=== PATIENT | female | born 1990 | race Caucasian/White ===

== ENCOUNTER 2020-09-17 09:03 | Emergency (ER) | payer BC ==
[~2020-09-17] VITALS: Ht 152.4 cm; Wt 63.0 kg
--- NOTE | 2020-09-17 09:19 | NUR ---
PT BROUGHT BACK FROM TRIAGE WITH CHIEF COMPLAINT OF BILAT FLANK PAIN AND N/V STARTING AT MIDNIGHT.
[2020-09-17] MEDS ORDERED: ONDANSETRON 2MG/ML, 2ML IVPush ONE (10:00)
[2020-09-17] MEDS ORDERED: KETOROLAC 30 MG/1 ML IVPush ONE (10:00)
[2020-09-17] MEDS ORDERED: SODIUM CHLORIDE FLUSH 10ML SYR IVF ONE (10:00)
[2020-09-17] MEDS ORDERED: SODIUM CHLORIDE 0.9% 1,000ML IV ONE (10:00)
[2020-09-17] MEDS ORDERED: HYDROmorphone 1 MG/ML, 1ML INJ IV ONE ×2 (10:00→11:30)
[2020-09-17] MEDS ORDERED: ONDANSETRON 2MG/ML, 2ML ONE (10:03)
[2020-09-17] MEDS ORDERED: KETOROLAC 30 MG/1 ML ONE (10:03)
--- NOTE | 2020-09-17 10:09 | NUR ---
PT TO IMAGING
[2020-09-17 10:28] LABS: MICROSCOPIC NOT IND
[2020-09-17] MEDS ORDERED: HYDROmorphone 1 MG/ML, 1ML INJ ONE ×2 (10:30→11:27)
[2020-09-17 10:49] LABS: BASOPHILS % (AUTO) 0 % (0-1); EOSINOPHILS % (AUTO) 0 % (1-7); LYMPHOCYTES % (AUTO) 7 % (22-44); MEAN CORPUSCULAR HEMOGLOBIN 28.6 pg (27.0-34.8); MEAN CORPUSCULAR HGB CONC 33.3 g/dL (32.4-35.8); MEAN PLATELET VOLUME 8.7 fL (7.4-10.4); MONOCYTES % (AUTO) 4 % (2-9); NEUTROPHILS % (AUTO) 89 % (42-75); PLATELET COUNT 284 x10^3/uL (130-400); RED BLOOD COUNT 4.82 x10^6/uL (3.82-5.3); RED CELL DISTRIBUTION WIDTH 14.9 % (9.6-15.2)
[2020-09-17 10:56] LABS: ALANINE AMINOTRANSFERASE 57 U/L (12-78); ALBUMIN 4.2 g/dL (3.4-5.0); ANION GAP 5 mmol/L (5-15); CALCIUM 9.2 mg/dL (8.5-10.1); CHLORIDE 109 mmol/L (98-107); CREATININE 0.87 mg/dL (0.55-1.02)
[2020-09-17 10:58] LABS: ALKALINE PHOSPHATASE 115 U/L (45-117); BILIRUBIN,TOTAL 0.4 mg/dL (0.2-1.0)
--- NOTE | 2020-09-17 11:15 | NUR ---
NAYELI BUENO AT BEDSIDE FOR EVAL
[2020-09-17 11:23] VITALS: BP 138/83
--- NOTE | 2020-09-17 12:12 | NUR ---
DC INSTRUCTIONS REVIEWED
== END 2020-09-17 12:13 | disposition home or self-care (01) ==
LOC: ED 11:53
DX: N20.2 Calculus of kidney with calculus of ureter (principal); R11.2 Nausea with vomiting, unspecified
CPT/HCPCS: 36415; 74176; 80053; 81003; 85025; 96361; 96374; 96375; 96376; 99284; J1170; J1885; J2405; J7030